=== PATIENT | female | born 1975 | race Asian ===

== ENCOUNTER 2020-07-25 21:14 | Emergency (ER) | payer BC ==
[~2020-07-25] VITALS: Ht 157.5 cm; Wt 54.0 kg
--- NOTE | 2020-07-25 21:57 | PHYS DOC ---
Past Medical History Past Medical History: No Pertinent History (LEILANI COOK APRN) Past Surgical History: No Surgical History (LEILANI COOK APRN) Smoking Status: Never Smoker Alcohol Use: None (LEILANI COOK APRN) General Adult EDM: Chief Complaint: CHEST PAIN HPI: HPI: Patient is a 45 year old female who presents with complaints that she woke up this morning at approximately 9 AM and a panic attack and was out of her Fioricet and clonazepam which made her panic attack worse to the point where she started developing left-sided chest pain. She states that she was unable to see her doctor today and decided to arrive at the emergency department after dealing with this pain and anxiety for approximately 12 hours. Patient states that if she could just have some Fiorinal and a 5 mg tablet of clonazepam that her chest pain would go away and she would feel much better. Patient states that it has been several months since she has had her clonazepam refilled because she has been unable to get into see her psychiatric physician. Patient denies any fever, chills, visual changes, nasal congestion cough or shortness of breath. Patient denies any swelling of her extremities, abdominal pain, nausea, vomiting, diarrhea, constipation. She denies any problems urinating, denies STI concerns. Patient denies back pain or pain in her joints, skin rashes, headaches, focal weaknesses, or sensory changes. Patient denies any increased urination or increased thirst. Patient denies any swelling of her glands. Patient denies current depressions, homicidal or suicidal ideations. Patient states her only complaints are anxiety which has caused her to have left-sided chest pain and needing her Fioricet and clonazepam today. (LEILANI COOK APRN) Review of Systems: Review of Systems: Constitutional: Denies fever or chills. Eyes: Denies change in visual acuity. HENT: Denies nasal congestion or sore throat. Respiratory: Denies cough or shortness of breath. Cardiovascular: Patient complains of left-sided chest pain sudden onset after realizing she did not have her Fioricet or clonazepam. GI: Denies abdominal pain, nausea, vomiting, bloody stools or diarrhea. : Denies dysuria. Denies STI concerns, denies vaginal discharge. Musculoskeletal: Denies back pain or joint pain. Integument: Denies rash. Neurologic: Denies headache, focal weakness or sensory changes. Endocrine: Denies polyuria or polydipsia. Lymphatic: Denies swollen glands. Psychiatric: Denies depression, homicidal or suicidal ideation, patient does complain of anxiety that has caused her to have pain. (LEILANI COOK APRN) Heart Score: HEART Score for Chest Pain: HEART Score for Chest Pain Response (Comments) Value History Slighlty/Non-Suspicious 0 ECG Normal 0 Age >45 - < 65 1 Risk Factors 1 or 2 Risk Factors 1 Troponin < Normal Limit 0 Total 2 Risk Factors: Risk Factors: DM, Current or recent (<one month) smoker, HTN, HLP, family history of CAD, obesity. Risk Scores: Score 0 - 3: 2.5% MACE over next 6 weeks - Discharge Home Score 4 - 6: 20.3% MACE over next 6 weeks - Admit for Clinical Observation Score 7 - 10: 72.7% MACE over next 6 weeks - Early Invasive Strategies (LEILANI COOK APRN) Current Medications: Patient states she takes Fioricet unknown dose, clonazepam 5 mg twice daily. (LEILANI COOK APRN) Allergies: Allergies: Allergies Coded Allergies Type Severity Reaction Last Updated Verified No Known Drug Allergies 07/25/20 No (LEILANI COOK APRN) Physical Exam: PE: Constitutional: Well developed, well nourished, no acute distress, non-toxic appearance. Patient's complain level of anxiety does not match patient's appearance. HENT: Normocephalic, atraumatic, bilateral external ears normal, oropharynx moist, no oral exudates, nose normal. Eyes: PERRLA, EOMI, conjunctiva normal, no discharge. Neck: Normal range of motion, no tenderness, supple, no stridor. Cardiovascular:Heart rate regular rhythm, no murmur heart sounds S1-S2 are auscultation. Lungs & Thorax: Bilateral breath sounds clear to auscultation all lung bartlett. Abdomen: Bowel sounds normal all 4 quadrants to auscultation, soft, no tenderness, no masses, no pulsatile masses. Skin: Warm, dry, no erythema, no rash. Back: No tenderness, no CVA tenderness. Extremities: No tenderness, no cyanosis, no clubbing, ROM intact, no edema. Neurologic: Alert and oriented X 3, normal motor function, normal sensory function, no focal deficits noted. Psychologic: Affect normal, judgement normal, mood normal. (LEILANI COOK APRN) Current Patient Data: Labs: Laboratory Tests Test 07/25/20 21:45 White Blood Count 5.1 x10^3/uL Red Blood Count 4.60 x10^6/uL Hemoglobin 14.3 g/dL Hematocrit 41.7 % Mean Corpuscular Volume 91 fL Mean Corpuscular Hemoglobin 31 pg Mean Corpuscular Hemoglobin Concent 34 g/dL Red Cell Distribution Width 13.0 % Platelet Count 252 x10^3/uL Neutrophils (%) (Auto) 68 % Lymphocytes (%) (Auto) 27 % Monocytes (%) (Auto) 4 % Eosinophils (%) (Auto) 0 % Basophils (%) (Auto) 1 % Neutrophils # (Auto) 3.5 x10^3/uL Lymphocytes # (Auto) 1.4 x10^3/uL Monocytes # (Auto) 0.2 x10^3/uL Eosinophils # (Auto) 0.0 x10^3/uL Basophils # (Auto) 0.0 x10^3/uL D-Dimer (Jacinda) 0.46 ug/mlFEU Sodium Level 146 mmol/L Potassium Level 2.9 mmol/L Chloride Level 109 mmol/L Carbon Dioxide Level 22 mmol/L Anion Gap 15 Blood Urea Nitrogen 6 mg/dL Creatinine 0.7 mg/dL Estimated GFR (Cockcroft-Gault) 90.1 BUN/Creatinine Ratio 9 Glucose Level 97 mg/dL Calcium Level 9.0 mg/dL Total Bilirubin 0.2 mg/dL Aspartate Amino Transf (AST/SGOT) 18 U/L Alanine Aminotransferase (ALT/SGPT) 56 U/L Alkaline Phosphatase 100 U/L Creatine Kinase 63 U/L Creatine Kinase MB (Mass) < 0.5 ng/mL Creatine Kinase MB Relative Index % Troponin I Quantitative < 0.017 ng/mL Total Protein 7.5 g/dL Albumin 3.9 g/dL Albumin/Globulin Ratio 1.1 Current Medications Medications (Trade) Dose Ordered Sig/Sree Route PRN Reason Start Time Stop Time Status Last Admin Dose Admin Lorazepam (Ativan Inj) 1 mg 1X ONCE IVP 07/25/20 22:15 07/25/20 22:16 DC 07/25/20 22:12 Potassium Chloride (Klor-Con) 40 meq 1X ONCE PO 10/31/20 22:30 07/25/20 22:31 DC 07/25/20 22:37 Vital Signs: Vital Signs Date Time Temp Pulse Resp B/P (MAP) Pulse Ox O2 Delivery O2 Flow Rate FiO2 07/25/20 21:20 98.2 85 18 141/86 (104) 100 Room Air 98.2 (LEILANI COOK APRN) EKG: EKG: EKG performed at 2121 per ED nursing staff. Heart rate 85 bpm, P R interval 0.134, QRS interval 0.082, QTc interval 0.451, normal sinus rhythm without ectopy, no STEMI noted, no ACS noted EKG interpreted by ED attending Dr. Garcia. (LEILANI COOK APRN) Radiology/Procedures: Radiology/Procedures: [] (LEILANI COOK APRN) Course & Med Decision Making: Course & Med Decision Making Pertinent Labs and Imaging studies reviewed. (See chart for details) 45-year-old female patient presents emergency department complaint of chest pain after working out with an anxiety attack at approximately 9:00 this morning and realized that she did not have any more Fioricet nor clonazepam to help her. Patient associates her chest pain with her anxiety. However because chest pain was on the left side nonradiating nonreproducible, a cardiac work-up was performed. Labs were negative for acute coronary syndrome, cardiac enzymes were negative, a pulmonary embolus was ruled out per a negative D-dimer. Patient's pain went from a 10/10 on a 1-10 pain scale down to a 0/10 on a 1-10 pain scale when she was told she would be given something for anxiety. Patient presented in no acute distress, when no respiratory distress, vital signs were stable and within normal limits. Discussed with patient laboratory findings, patient remained pain-free, also discussed with patient concerns of the amount of narcotic and benzodiazepine prescriptions she has been recently given. Discussed with patient that she would not be given a prescription for Fioricet nor clonazepam in the emergency department and that she should see her primary care physician for any more prescriptions for these types of medications. Patient gave verbal understanding of this. Patient states she would see her psychiatrist soon to get her medications. Discussed with patient discharge instructions, home care instructions, return to ER concerns. Patient gave verbal understanding of these instructions and had no further questions or concerns. Patient discharged home without incident. Patient was pain-free, and in no apparent distress at time of discharge. (LEILANI COOK APRN) Course & Med Decision Making Patient seen by nurse practitioner, agree with assessment and plan. After discharge patient's significant other asking about a prescription for anxiety medications will prescribe a short course of hydroxyzine (GRACE GARCIA MD) Dragon Disclaimer: Dragon Disclaimer: This electronic medical record was generated, in whole or in part, using a voice recognition dictation system. (LEILANI COOK APRN) Departure Departure Impression: Primary Impression: Anxiety Disposition: 01 DC HOME SELF CARE/HOMELESS Condition: GOOD Referrals: UNKNOWN PCP NAME (PCP) Patient Instructions: Anxiety and Panic Attacks Additional Instructions: Follow-up with your psychiatric physician soon for refills of your medications. Return to the emergency department for worsening symptoms, or other concerns. Scripts Hydroxyzine Hcl (HYDROXYZINE HCL) 25 Mg Tablet 1 TAB PO TID PRN for ANXIETY for 5 Days, #15 TAB Prov: GRACE GARCIA MD 07/26/20 LEILANI COOK APRN Jul 25, 2020 21:56 GRACE GARCIA MD Jul 26, 2020 00:19
[2020-07-25 22:10] LABS: BASO % 1 % (0-3); EOS % 0 % (0-3); HEMATOCRIT 41.7 % (36.0-47.0); HEMOGLOBIN 14.3 g/dL (12.0-15.5); LYMPH # 1.4 x10^3/uL (1.0-4.8); LYMPH % 27 % (24-48); MEAN CORPUSCULAR HEMOGLOBIN 31 pg (25-35); MEAN CORPUSCULAR HGB CONC 34 g/dL (31-37); MEAN CORPUSCULAR VOLUME 91 fL (79-100); MONO # 0.2 x10^3/uL (0.0-1.1); MONO % 4 % (0-9); NEUT # 3.5 x10^3/uL (1.8-7.7); NEUT % 68 % (31-73); PLATELET COUNT 252 x10^3/uL (140-400); WHITE BLOOD COUNT 5.1 x10^3/uL (4.0-11.0)
[2020-07-25 22:24] LABS: ALBUMIN 3.9 g/dL (3.4-5.0); ALBUMIN/GLOBULIN RATIO 1.1 (1.0-1.7); CREATININE 0.7 mg/dL (0.6-1.0); TOTAL PROTEIN 7.5 g/dL (6.4-8.2)
[2020-07-25 22:25] LABS: GFR 90.1; TOTAL BILIRUBIN 0.2 mg/dL (0.2-1.0)
[2020-07-25 22:26] LABS: POTASSIUM 2.9 mmol/L (3.5-5.1)
[2020-07-25] MEDS ORDERED: POTASSIUM CHLORIDE 20 MEQ TABLET.ER. PO ONE (22:30)
[2020-07-25 22:33] LABS: CREATINE KINASE 63 U/L (26-192)
[2020-07-25 23:47] VITALS: BP 109/71
[2020-07-26] MEDS ORDERED: HYDR25TA PO (00:09)
== END 2020-07-26 00:03 | disposition home or self-care (01) ==
LOC: ER 21:14
DX: F41.9 Anxiety disorder, unspecified (principal); R07.89 Other chest pain
CPT/HCPCS: 36415; 80053; 82553; 84484; 85025; 85379; 93005; 96374; 99285; J2060